=== PATIENT | female | born 1935 | race Caucasian/White ===

== ENCOUNTER 2022-09-20 16:29 | Emergency (ER) | payer MEDICARE, OTHER ==
[~2022-09-20] VITALS: Ht 160 cm; Wt 77.1 kg
[~2022-09-20 16:29] MED LIST: ACYC200 PO; LEVFLO250 PO; LOVA20 PO; PHENA200 PO; VALS80 PO
[2022-09-20 17:15] LABS: BASOPHILS ABSOLUTE AUTO 0.03 K/mm3 (0.00-0.23); BASOPHILS PERCENT AUTO 0 % (0-2); EOSINOPHILS PERCENT AUTO 1 % (0-6); Hematocrit 42.6 % (33.0-51.0); IMMATURE GRAN ABSOLUTE AUTO 0.04 K/mm3 (0.00-0.10); IMMATURE GRAN PERCENT AUTO 0 % (0-1); LYMPHOCYTES ABSOLUTE AUTO 1.86 K/mm3 (0.84-5.20); LYMPHOCYTES PERCENT AUTO 14 % (21-46); MONOCYTES ABSOLUTE AUTO 0.82 K/mm3 (0.16-1.47); MONOCYTES PERCENT AUTO 6 % (4-13); Mean Corpuscular HGB 28.5 pg (26.0-34.0); Mean Corpuscular HGB Conc 32.9 g/dL (31.5-36.5); Mean Corpuscular Volume 87 fL (80-100); Mean Platelet Volume 10.9 fL (9.1-12.4); NEUTROPHILS ABSOLUTE AUTO 10.77 K/mm3 (1.96-9.15); NEUTROPHILS PERCENT AUTO 79 % (41-73); Platelet Count 229 K/mm3 (150-400); RDW Coefficient Variation 13.1 % (11.7-14.2); RDW Standard Deviation 41.6 fL (35.1-46.3); Red Blood Cell Count 4.91 M/mm3 (3.80-5.20); White Blood Cell Count 13.62 K/mm3 (4.00-11.30)
[2022-09-20 17:37] LABS: Albumin, Blood 3.4 g/dL (3.4-5.0); Albumin/Globulin Ratio 0.9 (0.8-1.8); Bilirubin, Total 0.7 mg/dL (0.1-1.0); Bun/Creatinine Ratio 24.2 (12.0-20.0); Calcium, Blood 9.8 mg/dL (8.5-10.1); Creatinine, Blood 0.5 mg/dL (0.40-1.00); Globulin, Blood 3.8 g/dL (2.2-4.0); Potassium, Blood 4.2 mmol/L (3.5-5.5); Total Protein, Blood 7.2 g/dL (6.4-8.2)
[2022-09-20 21:04] LABS: Magnesium, Blood 2.1 mg/dL (1.6-2.4)
[2022-09-20 21:05] LABS: Thyroid Stimulating Hormone 0.921 uIU/mL (0.360-4.800)
[2022-09-20 21:27] LABS: International Normalized Ratio 2.3; Prothrombin Time Results 22.9 Sec (9.7-11.5)
== END 2022-09-20 22:41 | disposition home or self-care (01) ==
LOC: ER 16:29
PROVIDERS: Physician Assistant; Student in an Organized Health Care Education/Training Program
DX: I48.91 Unspecified atrial fibrillation (principal); R00.2 Palpitations; R05.9 Cough, unspecified; I10 Essential (primary) hypertension; Z96.653 Presence of artificial knee joint, bilateral; Z88.2 Allergy status to sulfonamides; Z88.8 Allergy status to other drugs, medicaments and biological substances; Z79.899 Other long term (current) drug therapy; Z79.01 Long term (current) use of anticoagulants
CPT/HCPCS: 36415; 71046; 80053; 83735; 83880; 84443; 84484; 85025; 85610; 93005; 93010; 99285-25

== ENCOUNTER 2023-06-08 07:01 | Day surgery (SDC) | payer MEDICARE, OTHER ==
[~2023-06-08] VITALS: Ht 160 cm; Wt 79.7 kg
--- NOTE | 2023-06-08 07:38 | NUR ---
PER PT SISTER AND MOM HAD PROBLEMS WITH ANESTHESIA, STATED IT COULD BE THE MORPHINE. NO ANAPHLAXIS IN THE FAMILY, NO MALIGNATE HYPERTHERMIA PER PT.
[2023-06-08] MEDS ORDERED: ESTRADIOL42.5 GM (07:40)
[2023-06-08] MEDS ORDERED: ATENOLOL25 MG PO (07:40)
[2023-06-08] MEDS ORDERED: JANTOVEN5 M2 PO (07:40)
[2023-06-08] MEDS ORDERED: Flecainide Acet50 MG PO (07:41)
[2023-06-08] MEDS ORDERED: KLOR-CON 1010 ME9 PO (07:41)
--- NOTE | 2023-06-08 07:49 | NUR ---
06/08/23 0749 Hetal Olivarez AT 0748 PLECAYDENET AT 0745
[2023-06-08 08:57] VITALS: BP 118/69
--- NOTE | 2023-06-08 08:58 | NUR ---
06/08/23 0858 Justin Gutierres IV REMOVED INTACT. SITE WNL.
== END 2023-06-08 09:04 | disposition home or self-care (01) ==
LOC: ORSCSDS 07:01
PROVIDERS: Student in an Organized Health Care Education/Training Program
PROC: 08RJ3JZ Replacement of Right Lens with Synthetic Substitute, Percutaneous Approach (ICD-10-PCS; principal; 2023-06-08 08:30)
DX: H25.11 Age-related nuclear cataract, right eye (principal); Z96.1 Presence of intraocular lens; Z87.891 Personal history of nicotine dependence; I48.91 Unspecified atrial fibrillation; I10 Essential (primary) hypertension; E78.5 Hyperlipidemia, unspecified; Z79.01 Long term (current) use of anticoagulants; Z79.899 Other long term (current) drug therapy
CPT/HCPCS: J2250; J7040; V2632

== ENCOUNTER → 2024-03-06 | Outpatient (CLI) | payer MEDICARE, OTHER ==
[~2024-03-06] MED LIST changes: +ATENOLOL25 MG PO; +ESTRADIOL42.5 GM; +Flecainide Acet50 MG PO; +JANTOVEN5 M2 PO; +KLOR-CON 1010 ME9 PO
== END | disposition home or self-care (01) ==
LOC: LAB 12:00 → LAB SHORT 12:00
DX: N89.8 Other specified noninflammatory disorders of vagina (principal)
CPT/HCPCS: 87070; 87205

== ENCOUNTER → 2024-05-28 | Outpatient (CLI) | payer MEDICARE, OTHER | LOC: LAB SHORT 17:36 → LAB 17:36 | DX: N89.8 Other specified noninflammatory disorders of vagina (principal) | CPT/HCPCS: 87070; 87205 ==